=== PATIENT | male | born 1950 | race Caucasian/White ===

== ENCOUNTER 2016-10-17 17:41 | Day surgery (SDC) | payer OTHER, MEDICARE ==
--- NOTE | ~2016-10-17 | HP ---
ADMIT: 10/17/2016 RM/LOC: [facility] MR#: [id number] [address] [address] [facility] [address] [place] [address] Pre-OP History and Physical SEX: M AGE: 66 : 1950 DATE OF SERVICE: 10/17/2016 HISTORY OF PRESENT ILLNESS: The patient is a 66-year-old reportedly was playing with a dildo and got it stuck in his rectum, who was unable to get it removed, presented for foreign body removal. PAST MEDICAL AND SURGICAL HISTORY: Negative. MEDICATIONS: He takes no medications. ALLERGIES: HE HAS NO ALLERGIES. SOCIAL HISTORY: He is a nondrinker and nonsmoker. FAMILY HISTORY: Noncontributory. PHYSICAL EXAMINATION: VITAL SIGNS: He is afebrile. Vitals stable. HEART: Regular. LUNGS: Clear. ABDOMEN: Soft, nondistended, nontender with no peripheral edema. No focal neurologic deficits. ASSESSMENT AND PLAN: The patient is a 66-year-old with a rectal foreign body, presents for removal. Possibility of laparotomy and stoma was discussed with the patient. He wished to proceed. Malvin Warner MD/ mariann JOB #: [id number] CC: Malvin Warner, Attending Physician Malvin Warner, Family Physician
--- NOTE | 2016-10-17 23:29 | NUR ---
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 I had security escortpt to his rig. Pt realized he did not have his truck keys. he returned to [facility] with secuity guard. Calls were made to ER. I looked in several places and went through the laundry. ER did the same thing. Also housekeeping moved furniture and looked through laudry. No granados was found. Pt think he might have locked the keys in his semi. [place] notified.
--- NOTE | 2016-10-22 16:16 | ER ---
ADMIT: 10/17/2016 RM/LOC: [facility] MR#: [id number] [facility] [address] [facility] [address] [place] [address] [place] [address] Emergency Room Report SEX: M AGE: 66 : 1950 DATE: 10/17/2016 ADDENDUM: A 66-year-old white male coming in with foreign body rectally. Flat plate does show that. It is fairly high up. I spoke to Dr. Warner, he will need to take him to surgery for removal. Noe Sethi MD/ mariann JOB #: [id number] CC: Malvin Warner MD, Attending Physician Malvin Warner MD, Family Physician
--- NOTE | 2016-10-30 10:23 | OR ---
ADMIT: 10/17/2016 RM/LOC: [facility] MR#: [id number] [address] [address] [place] [address] Operative/Delivery Room Report SEX: M AGE: 66 : 1950 SURGERY DATE: 10/17/2016 SURGEON: Malvin Warner MD PREPROCEDURE DIAGNOSIS: Rectal foreign body. POSTPROCEDURE DIAGNOSIS: Rectal foreign body. PROCEDURE: Flexible sigmoidoscopy with rectal foreign body removal. INDICATIONS: The patient is a 66-year-old with the rectal foreign body, who presents for foreign body removal. FINDINGS: The patient was taken to the endoscopy suite. He was intubated and paralyzed and sedated, placed in a left lateral decubitus position. Colonoscope was introduced in the rectum. Immediately, there was a large purple dildo about 10 cm. Then, we paralyzed the patient. I was able to, with my left hand, push on the umbilicus or near the umbilicus and the abdomen and actually slide this out through the anus without difficulty. I replaced the gastric colonoscope making sure there was no evidence of mucosal injury, which there was none. The patient was then extubated and wheeled to the recovery room in good condition. Malvin Warner MD/ mariann JOB #: [id number] CC: Malvin Warner, Attending Physician Malvin Warner, Family Physician
== END 2016-10-17 22:10 | disposition home or self-care (01) ==
LOC: ER 17:41 → SSS 19:50
PROC: 0DCP8ZZ Extirpation of Matter from Rectum, Via Natural or Artificial Opening Endoscopic (ICD-10-PCS; principal; 2016-10-17)
DX: T18.5XXA Foreign body in anus and rectum, initial encounter (principal); F17.210 Nicotine dependence, cigarettes, uncomplicated; Z90.49 Acquired absence of other specified parts of digestive tract; X58.XXXA Exposure to other specified factors, initial encounter